=== PATIENT | female | born 1955 | race Caucasian/White ===

== ENCOUNTER → 2016-08-13 | Outpatient (CLI) | payer OTHER ==
[~2016-08-13] MED LIST: ASPI-1085 PO; ATEN50TA PO; CITA-49 PO; ESTR0.9T2 PO; FLUT16SP12 NS; P-EP-570 PO
== END ==
LOC: WC.BC 08:04
DX: Z12.31 Encounter for screening mammogram for malignant neoplasm of breast (principal)